=== PATIENT | female | born 1955 | race African-American/Black ===

== ENCOUNTER 2022-03-12 15:04 | Outpatient (CLI) | payer MEDICARE | END 2022-03-12 15:05 | disposition home or self-care (01) | LOC: BURRAD 15:04 | PROVIDERS: ATTEND Family Medicine | DX: M79.622 Pain in left upper arm (principal) ==

== ENCOUNTER 2022-07-02 18:53 | Emergency (ER) | payer MEDICARE | END 2022-07-02 19:30 | disposition home or self-care (01) | LOC: BURERS 18:53 | DX: K64.4 Residual hemorrhoidal skin tags (principal); I10 Essential (primary) hypertension; K21.9 Gastro-esophageal reflux disease without esophagitis; M19.90 Unspecified osteoarthritis, unspecified site; Z79.899 Other long term (current) drug therapy | CPT/HCPCS: 99282 ==